=== PATIENT | male | born 1960 | race Caucasian/White ===

== ENCOUNTER 2016-10-21 13:27 | Inpatient (IN) ==
[2016-10-21] MEDS ORDERED: ACETAMINOPHEN 325 MG TABLET PO PRN (13:35)
[2016-10-21] MEDS ORDERED: DEXTROSE 50% 25 GM/50 ML VIAL IV PRN ×2 (13:35)
[2016-10-21] MEDS ORDERED: GLUCAGON 1 MG VIAL IM PRN ×2 (13:35)
[2016-10-21] MEDS ORDERED: ONDANSETRON 4 MG/2 ML VIAL IV PRN (13:35)
[2016-10-21] MEDS: SODIUM CHLORIDE 0.9% 1,000 ML IV SCH ×2 (14:47→23:20)
--- NOTE | 2016-10-21 14:47 | Internal Med History&Physical ---
Assessment and Plan (1) Diabetes mellitus, new onset Status: Acute Assessment and plan: 55-year-old male admitted to acute care * New onset diabetes. Patient will be started on a sliding scale. He will also be started on diabetic education. Will start him on Lantus insulin 15 units at bedtime. Will start him on metformin 500 twice daily. Patient will also be started on a 2200-calorie diet * Hypertension. Continue current treatment * Psoriatic arthritis. Continue current treatment * Hypothyroidism. He will continue Synthroid * Reflux. Continue Nexium * Discussed with patient in detail Current Visit: Yes (2) Hypertension Status: Acute Current Visit: Yes (3) Hypothyroidism Status: Acute Current Visit: Yes (4) Psoriasis Status: Acute Current Visit: Yes (5) Obstructive sleep apnea Status: Acute Current Visit: Yes (6) Morbid obesity Status: Acute Current Visit: Yes History of Present Illness Chief complaint: Hyperglycemia. New onset diabetes History of present illness: Mr. Bedoya is a 55 year old male with history of hypertension, hypothyroidism, psoriatic arthritis, morbid obesity, primary central sleep apnea who presented to the office this afternoon with increase thirst, polyuria, polydipsia. He has lost 23 pounds over the last 3 months. His blood sugars were checked in the office and were found to be over 530. Patient was given 10 units of NovoLog insulin subcu. His hemoglobin A1c was checked and was found to be over 14. Patient has no previous history of diabetes. He has been admitted for evaluation and treatment. He denies any recent infections. He denies any blurred vision or problems with his eyesight. He denies any nausea vomiting or diarrhea. He denies any fever or chills. His appetite has been poor. He lives at home with his family. He does not drink alcohol or smoke Home Medications Medication Instructions Recorded Confirmed Type Ascorbic Acid [Vitamin C] 1,000 mg PO DAILY 10/21/16 10/21/16 History Aspirin/Calcium Carbonate/Mag 325 mg PO DAILY 10/21/16 10/21/16 History [Aspirin Buffered 325 mg Tab] Carvedilol 25 mg PO BID 10/21/16 10/21/16 History Cyanocobalamin (Vitamin B-12) 1,000 mcg PO DAILY 10/21/16 10/21/16 History [Vitamin B12] Levothyroxine Tab [Synthroid Tab] 25 mcg PO DAILY@0700 10/21/16 10/21/16 History Levothyroxine Tab [Synthroid Tab] 50 mcg PO DAILY@0700 10/21/16 10/21/16 History Lisinopril/Hctz 20-12.5 [Prinzide 20 mg PO DAILY 10/21/16 10/21/16 History 20-12.5] Meloxicam [Meloxicam] 15 mg PO DAILY PRN 10/21/16 10/21/16 History Potassium Chloride Cap/Tab [Micro 8 meq PO DAILY 10/21/16 10/21/16 History K] Psyllium Husk [Metamucil] 0.52 gm PO DAILY 10/21/16 10/21/16 History Terazosin [Hytrin] 5 mg PO BEDTIME 10/21/16 10/21/16 History Tramadol HCl [Tramadol Tab] 50 mg PO BID 10/21/16 10/21/16 History hydrALAZINE TAB [Apresoline Tab] 50 mg PO TID 10/21/16 10/21/16 History Allergies Allergy/AdvReac Type Severity Reaction Status Date / Time ampicillin Allergy Mild HIVES Verified 10/21/16 14:30 Medical,Surgical,& Family Hx - Medical History Cardio: History of: Hypertension Endocrine: History of: Diabetes Mellitus (NIDDM) (New onset), Thyroid Disorder, Endocrine Problems (Morbid obesity) Rheumatology: History of;: Psoriasis, Rheumatological Problems (Psoriatic arthritis) Respiratory: History of: Obstructive Sleep Apnea, Pulmonary Embolism (History of DVT and PE in 2012) Other: History of: Miscellaneous Medical Problems (Morbid obesity, chronic back pain, obstructive sleep apnea) - Surgical History Abdominal Surgeries: Surgical HX of: Appendectomy Orthopedic Surgeries: Surgical HX of;: Total Knee Replacement (Bilateral) - Family History Family History: Reports;: Family Cancer, Family Diabetes, Family Heart Disease, Family Hypertension - Social History Smoking Status: Never smoker Frequency of Alcohol Use: None Type of Drug Use: None 12 point system: reviewed and no additional remarkable complaints except as stated (As mentioned in HPI) Exam - Constitutional Exam: Examination: GENERAL: Morbidly obese white male who is in no acute distress HEENT: PERRLA. EOMI. Mucous membranes are moist. NECK: Neck is supple. No JVD. No carotid bruit. No thyromegaly. CVS: Regular rate and rhythm. S1 and S2 are normal. RESPIRATORY: Lungs are clear. No rales or rhonchi. ABDOMEN: Soft and nontender. Bowel sounds are present. No hepatosplenomegaly. Umbilical hernia EXT: No edema. Peripheral pulses are present. [employer]: Patient is awake, alert and oriented to time place and person. Cranial nerves II through XII are grossly intact. Motor strength is 4 over 5 both upper and lower extremities. SKIN: Warm and dry. MSK: No obvious deformity. Results - Labs CBC & BMP: 10/21/16 14:49 10/21/16 14:49 Labs: Glucose 550 in the office. Sodium 132 potassium 4.7 chloride 96 CO2 was 26.3. BUN and creatinine were 27 and 1.24. White count 6.97 with H&H 14.2 and 43.5. Hemoglobin A1c was 14.2.
[2016-10-21 14:57] LABS: Basophils % 0.6 % (0.0-0.8); Eosinophils # 0.3 10*3/uL (0.0-0.87); Eosinophils % 4.7 % (0.00-10.9); Hematocrit 41.2 VOL% (42.0-52.0); Hemoglobin 13.3 GM/DL (14.0-18.0); Immature Granulocytes % 0.6 %; Immature Granulocytes Absolute 0.04 #; Lymphocytes # 0.8 10*3/uL (1.4-4.0); Lymphocytes % 12.7 % (21.2-54.2); Mean Corpuscular HGB Conc 32.3 GM/DL (32-36); Mean Corpuscular Hemoglobin 28 PG (27-34); Mean Corpuscular Volume 87.7 FL (87-102); Mean Platelet Volume 12.2 FL (9.6-12.0); Monocytes # 0.4 10*3/uL (0.11-0.8); Neutrophils # 4.8 10*3/uL (1.4-7.4); Neutrophils % 75.4 % (38.7-73.9); Platelet Count 170 T/CUMM (130-400); Red Cell Distribution Width 15.9 % (9.3-17.3); White Blood Count 6.4 T/CUMM (4-12)
[2016-10-21 15:17] LABS: Calcium 9.1 MG/DL (8.5-10.1); Osmolality,Calculated 299.1 MOS/KG (273-304); Potassium 4.3 MMOL/L (3.5-5.1)
[2016-10-21] MEDS: INSULIN LISPRO 100 UNIT/ML SUBCUT SCH ×2 (16:02→22:01)
[2016-10-21] MEDS: metFORMIN 500 MG TABLET PO SCH (16:03)
[2016-10-21] MEDS ORDERED: MELOXICAM 7.5 MG TABLET PO PRN (16:30)
[2016-10-21] MEDS: CARVEDILOL 25 MG TABLET PO SCH (17:00)
[2016-10-21] MEDS: traMADol 50 MG TABLET PO SCH (22:00)
[2016-10-21] MEDS: ENOXAPARIN 40 MG/0.4 ML SYRINGE SUBCUT SCH (22:00)
[2016-10-21] MEDS: TERAZOSIN 5 MG CAPSULE PO SCH (22:01)
[2016-10-21] MEDS: DOCUSATE SODIUM 100 MG CAPSULE PO SCH (22:01)
[2016-10-22] MEDS: LEVOTHYROXINE 200 MCG TABLET PO SCH (06:12)
[2016-10-22] MEDS: LEVOTHYROXINE 50 MCG TABLET PO SCH (06:12)
[2016-10-22 06:21] LABS: Basophils % 0.4 % (0.0-0.8); Eosinophils # 0.3 10*3/uL (0.0-0.87); Eosinophils % 5.5 % (0.00-10.9); Hematocrit 35.3 VOL% (42.0-52.0); Hemoglobin 11.6 GM/DL (14.0-18.0); Immature Granulocytes % 0.6 %; Immature Granulocytes Absolute 0.03 #; Lymphocytes # 1.2 10*3/uL (1.4-4.0); Lymphocytes % 22.1 % (21.2-54.2); Mean Corpuscular HGB Conc 32.9 GM/DL (32-36); Mean Corpuscular Hemoglobin 28 PG (27-34); Mean Corpuscular Volume 86.3 FL (87-102); Mean Platelet Volume 12.2 FL (9.6-12.0); Monocytes # 0.4 10*3/uL (0.11-0.8); Monocytes % 6.7 % (1.7-12.7); Neutrophils # 3.4 10*3/uL (1.4-7.4); Neutrophils % 64.7 % (38.7-73.9); Platelet Count 133 T/CUMM (130-400); Red Blood Count 4.09 MC/CUMM (3.8-5.5); Red Cell Distribution Width 16.2 % (9.3-17.3); White Blood Count 5.2 T/CUMM (4-12)
[2016-10-22 06:54] LABS: Calcium 8.3 MG/DL (8.5-10.1); Osmolality,Calculated 294.5 MOS/KG (273-304); Potassium 3.6 MMOL/L (3.5-5.1)
--- NOTE | 2016-10-22 08:57 | Internal Med Progress Note ---
Assessment and Plan (1) Diabetes mellitus, new onset Status: Acute Assessment and plan: 55-year-old male admitted to acute care * New onset diabetes. Patient started on metformin and Lantus. Diabetic education was done yesterday and will be continued today * Hypertension. Continue current treatment * Psoriatic arthritis. Continue current treatment * Hypothyroidism. He will continue Synthroid * Reflux. Continue Nexium * Discussed with patient in detail Current Visit: Yes (2) Hypertension Status: Acute Current Visit: Yes (3) Hypothyroidism Status: Acute Current Visit: Yes (4) Psoriasis Status: Acute Current Visit: Yes (5) Obstructive sleep apnea Status: Acute Current Visit: Yes (6) Morbid obesity Status: Acute Current Visit: Yes Internal Medicine - PN: Subj Interval history: He is feeling better this morning. He is not urinating as much. No chest pain or shortness of breath Exam (Progress Note) - Constitutional Vitals: Period Temp Pulse Resp BP Sys/Delgado Pulse Ox Last 24 Hr 98.0 F-98.7 F 69-75 18-20 90-153/46-84 94-100 Exam: Examination: GENERAL: Morbidly obese white male who is in no acute distress NECK: Neck is supple. CVS: Regular rate and rhythm. S1 and S2 are normal. RESPIRATORY: Lungs are clear. ABDOMEN: Soft and nontender. EXT: No edema. Peripheral pulses are present. 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 MSK: No obvious deformity. Results - Labs CBC & BMP: 10/22/16 05:32 10/22/16 05:32 Lab Results: I have reviewed the past 24 hour labs
[2016-10-22] MEDS ORDERED: INSULIN GLARGINE 100 UNIT/ML SUBCUT SCH ×2 (09:00)
[2016-10-22] MEDS: ASCORBIC ACID 500 MG TABLET PO SCH (09:24)
[2016-10-22] MEDS: CYANOCOBALAMIN 500 MCG TABLET PO SCH (09:24)
[2016-10-22] MEDS: metFORMIN 500 MG TABLET PO SCH ×2 (09:24→16:52)
[2016-10-22] MEDS: ASPIRIN EC 325 MG TABLET PO SCH (09:25)
[2016-10-22] MEDS: DOCUSATE SODIUM 100 MG CAPSULE PO SCH ×2 (09:25→22:24)
[2016-10-22] MEDS: POTASSIUM CHLORIDE 8 MEQ CAPSULE PO SCH (09:25)
[2016-10-22] MEDS: CARVEDILOL 25 MG TABLET PO SCH ×2 (09:25→16:52)
[2016-10-22] MEDS: PANTOPRAZOLE 40 MG TABLET PO SCH (09:25)
[2016-10-22] MEDS: traMADol 50 MG TABLET PO SCH ×2 (09:25→22:23)
[2016-10-22] MEDS: LISINOPRIL/HCTZ 20-12.5 MG TABLET PO SCH (09:25)
[2016-10-22] MEDS: SODIUM CHLORIDE 0.9% 1,000 ML IV SCH ×2 (09:28→16:51)
[2016-10-22] MEDS: INSULIN LISPRO 100 UNIT/ML SUBCUT SCH ×4 (09:30→22:27)
[2016-10-22] MEDS: PSYLLIUM POWDER 3.7 GM/PACK PO SCH (10:29)
[2016-10-22] MEDS: TERAZOSIN 5 MG CAPSULE PO SCH (22:23)
[2016-10-22] MEDS: ENOXAPARIN 40 MG/0.4 ML SYRINGE SUBCUT SCH (22:25)
[2016-10-23] MEDS: SODIUM CHLORIDE 0.9% 1,000 ML IV SCH ×2 (01:50→09:48)
[2016-10-23] MEDS: LEVOTHYROXINE 50 MCG TABLET PO SCH (06:33)
[2016-10-23] MEDS: LEVOTHYROXINE 200 MCG TABLET PO SCH (06:33)
[2016-10-23 06:51] LABS: Calcium 8.1 MG/DL (8.5-10.1); Osmolality,Calculated 290.4 MOS/KG (273-304); Potassium 4.5 MMOL/L (3.5-5.1)
[2016-10-23] MEDS ORDERED: INSULIN GLARGINE 100 UNIT/ML SUBCUT SCH (07:31)
--- NOTE | 2016-10-23 07:37 | Discharge Summary ---
Hospital Course - Hospital Course Hospital Course: 55-year-old male with history of hypertension, psoriatic arthritis, hypothyroidism, reflux who was admitted with new onset diabetes. Patient was seen in office with a blood sugar of over 500. His hemoglobin A1c was over 14.1. He was admitted and started on IV fluids. He was seen in consultation by diabetic education. He was instructed in giving himself injections. Patient has been started on a 2200-calorie diet. He is relatively stable. He is going to be discharged home today. He will check his Accu-Cheks before meals and 2 hours postprandial. He will be sent home on Lantus insulin 35 units subcu daily and Metformin 500 mg twice daily. His other medications are continued. Patient has been advised to start regular exercise and diet control. I will see him in office next week. Diagnosis - Discharge Diagnosis (1) Diabetes mellitus, new onset Status: Acute (2) Hypertension Status: Acute (3) Hypothyroidism Status: Acute (4) Psoriasis Status: Acute (5) Obstructive sleep apnea Status: Acute (6) Morbid obesity Status: Acute Discharge Plan - Discharge Data Disposition: Disch To Home/Self Care Condition at Discharge: Stable Discharge Diet: diabetic diet (2200 ADA calorie diet) Activity: resume usual activities as tolerated - Discharge Medications New Insulin Glargine [Lantus] 35 unit SUBCUT DAILY #30 unit metFORMIN [Glucophage] 500 mg PO BID W/MEALS #60 tablet Continue Carvedilol 25 mg PO BID Cyanocobalamin (Vitamin B-12) [Vitamin B12] 1,000 mcg PO DAILY Aspirin/Calcium Carbonate/Mag [Aspirin Buffered 325 mg Tab] 325 mg PO DAILY Meloxicam 15 mg PO DAILY PRN PRN Reason: ARTHIRITIS Lisinopril/Hctz 20-12.5 [Prinzide 20-12.5] 20 mg PO DAILY Potassium Chloride Cap/Tab [Micro K] 8 meq PO DAILY Psyllium Husk [Metamucil] 0.52 gm PO DAILY Ascorbic Acid [Vitamin C] 1,000 mg PO DAILY Tramadol HCl [Tramadol Tab] 50 mg PO BID Levothyroxine Tab [Synthroid Tab] 50 mcg PO DAILY@0700 Terazosin [Hytrin] 5 mg PO BEDTIME hydrALAZINE TAB [Apresoline Tab] 50 mg PO TID Levothyroxine Tab [Synthroid Tab] 200 mcg PO DAILY@0700 - Follow Up or Referral - Forms/Instructions Additional Discharge Instructions: Appointment 1 week in office. Call in medications on discharge including Lantus insulin and Metformin Exam - Constitutional Vitals: Period Temp Pulse Resp BP Sys/Delgado Pulse Ox Last 24 Hr 97 F-98.8 F 68-86 18-24 125-135/62-76 92-99 Exam: Examination: GENERAL: Morbidly obese white male who is in no acute distress NECK: Neck is supple. CVS: Regular rate and rhythm. RESPIRATORY: Lungs are clear. ABDOMEN: Soft and nontender. EXT: No edema. Peripheral pulses are present. 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 MSK: No obvious deformity. Discharge Results Labs on day of discharge: Labs from last 24 hours 10/23/16 10/22/16 10/22/16 05:36 19:46 15:50 Sodium 140 Potassium 4.5 Chloride 106 Carbon Dioxide 28 Anion Gap 10.5 BUN 19 H Creatinine 1.10 GFR Calculation 130 BUN/Creatinine Ratio 17.00 Glucose 283 H POC Glucose 276 H 365 H Calculated Osmolality 290.4 Calcium 8.1 L 10/22/16 10/22/16 10:50 07:10 Sodium Potassium Chloride Carbon Dioxide Anion Gap BUN Creatinine GFR Calculation BUN/Creatinine Ratio Glucose POC Glucose 435 H 333 H Calculated Osmolality Calcium DS: Provider Date of admission: 10/21/16 14:15 Primary care physician: . No PCP Attending physician on admission: Jose Alfredo Arrington MD Consults: 10/21/16 13:35 Consult to Case Mgmt/Social Srvs [CONS] Routine Reason for Case Mgmt/Social Srvs: Discharge Planning 10/21/16 13:37 Consult to [facility], Educator [CONS] Routine Reason for Machine Specialist: Diabetes Education Consult Comment: New onset diabetes with blood sugar over 500 10/21/16 15:36 Consult to Pharmacy [CONS] Routine Reason for Pharmacy Consult: Adjust Meds Renal Funct Discharging clinician: Jose Alfredo Arrington MD
[2016-10-23 08:37] VITALS: BP 131/69
[2016-10-23] MEDS: CYANOCOBALAMIN 500 MCG TABLET PO SCH (08:38)
[2016-10-23] MEDS: CARVEDILOL 25 MG TABLET PO SCH (08:39)
[2016-10-23] MEDS: metFORMIN 500 MG TABLET PO SCH (08:39)
[2016-10-23] MEDS: POTASSIUM CHLORIDE 8 MEQ CAPSULE PO SCH (08:39)
[2016-10-23] MEDS: ASPIRIN EC 325 MG TABLET PO SCH (08:39)
[2016-10-23] MEDS: ASCORBIC ACID 500 MG TABLET PO SCH (08:39)
[2016-10-23] MEDS: PANTOPRAZOLE 40 MG TABLET PO SCH (08:39)
[2016-10-23] MEDS: traMADol 50 MG TABLET PO SCH (08:39)
[2016-10-23] MEDS: LISINOPRIL/HCTZ 20-12.5 MG TABLET PO SCH (08:40)
[2016-10-23] MEDS: INSULIN LISPRO 100 UNIT/ML SUBCUT SCH ×2 (08:41→12:42)
[2016-10-23] MEDS: DOCUSATE SODIUM 100 MG CAPSULE PO SCH (08:43)
[2016-10-23] MEDS: PSYLLIUM POWDER 3.7 GM/PACK PO SCH (08:43)
== END 2016-10-23 12:41 | disposition home or self-care (01) | DRG 638 ==
LOC: N.2E 14:15
PROVIDERS: ADMIT Internal Medicine; ATTEND Internal Medicine